=== PATIENT | female | born 1960 | race Caucasian/White ===

== ENCOUNTER → 2020-06-04 | Outpatient (CLI) | payer BC ==
--- NOTE | 2020-06-04 13:58 | CTL ---
EXAMINATION TYPE: CT Low Dose Lung DATE OF EXAM ORDERED: 06/04/2020 HISTORY: Personal history of tobacco use. Lung cancer screening CT DLP: 90.[address] CTDI: 3.2 mGy Automated exposure control for dose reduction was used. SCREENING VISIT: Yes COMPARISON: None TECHNIQUE: Low dose computed tomography scan was performed through the chest at 1 mm thick sections a nd reconstructed images in the coronal plane at [address] DIAGNOSTIC QUALITY: Satisfactory FINDINGS: LUNG NODULES: None. A 2 mm groundglass opacity of the right upper lobe appears related to branching v asculature (4:66, 7:188). LUNGS: COPD: Severity: Mild Fibrosis: Severity: None Lymph nodes: None Other findings: None RIGHT PLEURAL SPACE: Effusion: None Calcification: None Thickening: None Pneumothorax: None LEFT PLEURAL SPACE: Effusion: None Calcification: None Thickening: None Pneumothorax: None HEART: Heart Size: Normal Coronary calcification: Mild Pericardial effusion: Mild OTHER FINDINGS: Upper abdomen: Small hypodensities of the liver likely represent hepatic cyst. Bony thorax: Mild degenerative changes of the thoracic spine. Supraclavicular region: Normal. Other: None IMPRESSION: 1. Negative for pulmonary nodules. 2. Mild emphysematous change. 3. Mild calcified coronary artery disease. FOLLOW UP CT CHEST RECOMMENDATION: Annual low-dose lung CT CT LUNG RAD: 1S - negative
== END | disposition home or self-care (01) ==
LOC: RADCTMAIN 08:18
PROVIDERS: ATTEND Family Medicine
DX: Z12.2 Encounter for screening for malignant neoplasm of respiratory organs (principal); J43.9 Emphysema, unspecified; I25.10 Atherosclerotic heart disease of native coronary artery without angina pectoris; Z87.891 Personal history of nicotine dependence